=== PATIENT | female | born 1990 | race Caucasian/White ===

== ENCOUNTER 2019-02-09 09:27 | Day surgery (SDC) | payer BC ==
[2019-02-04 13:23] VITALS: BMI 37.2
[~2019-02-09 09:27] MED LIST: CLINDAMYCIN 600 MG in DEXTROSE 5% IN WATER 50 ML IVPB ONE; DEXAMETHASONE SOD PHOSPHATE 10 MG/ML 1 ML VIAL IV ONE; DEXAMETHASONE SOD PHOSPHATE 4 MG/ML 1 ML VIAL IV ONE; FAMOTIDINE 20 MG/2 ML VIAL IV ONE; LACTATED RINGERS 1,000 ML IV SCH; LIDOCAINE 1% 20 ML VIAL (10MG/ML) FOR IV START INTRADERMA PRN; ONDANSETRON 4 MG/2 ML VIAL IVP ONE; fentaNYL (PF) 50 MCG/ML 2 ML AMP IV PRN
[2019-02-09] MEDS ORDERED: MIDAZOLAM 2 MG/2 ML VIAL ONE (11:09)
[2019-02-09] MEDS ORDERED: PROPOFOL 10 MG/ML 20 ML VIAL IV ONE (11:09)
[2019-02-09] MEDS ORDERED: fentaNYL (PF) 50 MCG/ML 2 ML AMP ONE (11:09)
[2019-02-09] MEDS ORDERED: DEXAMETHASONE SOD PHOS (MDV) 100 MG/10 ML VIAL ONE (11:09)
[2019-02-09] MEDS ORDERED: LIDOCAINE 1% INJ 10MG/ML (20 ML MDV) ONE (11:09)
[2019-02-09] MEDS ORDERED: SUCCINYLCHOLINE CHLORIDE 100 MG/5 ML SYR IV ONE (11:09)
--- NOTE | 2019-02-09 11:58 | P.OP ---
Date of Procedure: 02/09/19 Preoperative Diagnosis: Chronic tonsillitis Chronic cryptic tonsillitis Postoperative Diagnosis: Same Procedure(s) Performed: Adenotonsillectomy Anesthesia: LAZAROA Surgeon: Lucius Marques Estimated Blood Loss (ml): 2 Pathology: other (Bilateral tonsils) Condition: stable Disposition: PACU Indications for Procedure: This 28-year-old white female whose had difficulties with chronic cryptic tonsillitis and chronic and recurrent tonsillitis Operative Findings: Tonsils +3 bilaterally with crypts and debris in the crypts with mild adenoid hypertrophy Description of Procedure: PROCEDURE: The patient was brought into the operative suite and placed in the supine position. The patient underwent induction of general anesthesia with oral endotracheal intubation without difficulty. The table was turned 90 degrees and the patient was positioned with a shoulder roll and head donut. The patient was prepped and draped in the usual aseptic fashion. The McIvor mouth gag was placed. The soft palate was palpated. No submucous cleft was noted. Red rubber Lo catheters were placed through both nasal cavities and pulled through the oropharynx for soft palate retraction. The nasopharynx was examined with a mirror examiner and the adenoids were vaporized/cauterized with suction cautery. This ablated the adenoids and there was good hemostasis noted. The red rubber Lo catheters were removed. The left tonsil was then grasped with a curved Allis clamp and dissected from the tonsillar fossa in a superior to inferior direction using both blunt and electrocautery dissection until the tonsils was removed. Once the tonsils were removed, hemostasis was gained with suction cautery. Attention was then turned to the right where the right tonsil was removed exactly as the left had been. Once hemostasis was obtained and remained good in both tonsillar fossa as well as the nasopharynx, the patient was suctioned in an orogastric fashion and the McIvor mouth gag was removed. The patient was then allowed to emerge from general anesthesia, having tolerated the procedure well. The patient was extubated in the operative suite and transferred to the postoperative recovery area in satisfactory condition.
[2019-02-09] MEDS: HYDROmorphone 0.5 MG/0.5 ML SYRINGE IVP PRN ×3 (12:10→12:27)
[2019-02-09 12:17] VITALS: TEMP 97.3
[2019-02-09] MEDS ORDERED: ONDANSETRON 4 MG/2 ML VIAL IVP ONE (12:24)
[2019-02-09] MEDS ORDERED: diphenhydrAMINE 50 MG/ML 1 ML VIAL IVP ONE (12:47)
[2019-02-09] MEDS ORDERED: HYDROcodone/APAP 7.5-325MG 1 EACH TAB PO ONE (13:54)
[2019-02-09 14:09] VITALS: BP 114/73; PULSE 75; RESP 17
== END 2019-02-09 14:12 | disposition home or self-care (01) ==
LOC: OR 09:27
PROVIDERS: ATTEND Otolaryngology
DX: J35.01 Chronic tonsillitis (principal); J03.91 Acute recurrent tonsillitis, unspecified; F32.9 Major depressive disorder, single episode, unspecified; G43.909 Migraine, unspecified, not intractable, without status migrainosus; E66.9 Obesity, unspecified; Z68.37 Body mass index [BMI] 37.0-37.9, adult; Z79.899 Other long term (current) drug therapy; Z79.1 Long term (current) use of non-steroidal anti-inflammatories (NSAID); Z88.0 Allergy status to penicillin; Z90.49 Acquired absence of other specified parts of digestive tract; Z80.49 Family history of malignant neoplasm of other genital organs; Z83.3 Family history of diabetes mellitus
CPT/HCPCS: 42821; 81025; 88304; J2250; J1200; J1100 ×2; J2405; J2001; J3010; J0330; J2704; J1170

== ENCOUNTER 2020-04-02 09:25 | Inpatient (IN) | payer BC, OTHER ==
[2020-03-29 16:04] VITALS: BMI 44.6
[2020-04-02] MEDS ORDERED: LACTATED RINGERS 1,000 ML IV ONE (10:03)
[2020-04-02] MEDS ORDERED: GENTAMICIN 360 MG in SODIUM CHLORIDE 0.9% 100 ML IVPB ONE (10:03)
[2020-04-02] MEDS ORDERED: CITRIC ACID-SODIUM CITRATE 15 ML CUP PO ONE (10:03)
[2020-04-02] MEDS ORDERED: CLINDAMYCIN 900 MG in DEXTROSE 5% IN WATER 50 ML IVPB ONE ×2 (10:03)
[2020-04-02 10:20] LABS: Basophils % (A) 0 %; Eosinophils # (A) 0.1 k/uL (0-0.7); Eosinophils % (A) 1 %; HCT 41.4 % (34.0-46.0); HGB 13.6 gm/dL (11.4-16.0); Lymphocytes # (A) 1.6 k/uL (1.0-4.8); Lymphocytes % (A) 12 %; MCH 28.7 pg (25.0-35.0); MCHC 32.9 g/dL (31.0-37.0); MCV 87.3 fL (80.0-100.0); Mean Platelet Volume 12.3; Monocytes # (A) 0.6 k/uL (0-1.0); Monocytes % (A) 5 %; Neutrophils # (A) 10.5 k/uL (1.3-7.7); Neutrophils % (A) 80 %; Platelet Count 108 k/uL (150-450); RBC 4.75 m/uL (3.80-5.40); RDW 14.3 % (11.5-15.5); WBC 13.1 k/uL (3.8-10.6)
[2020-04-02 10:42] LABS: Large Platelets Present
[2020-04-02] MEDS ORDERED: PHENYLEPHRINE-0.9% NACL SYG 1 MG/10 ML SYRINGE ONE (11:43)
[2020-04-02] MEDS ORDERED: KETOROLAC 15 MG/ML 1 ML VIAL ONE (11:43)
[2020-04-02] MEDS ORDERED: ONDANSETRON 4 MG/2 ML VIAL ONE (11:43)
[2020-04-02] MEDS ORDERED: METHYLERGONOVINE 0.2 MG/ML 1 ML AMP ONE (11:43)
[2020-04-02] MEDS ORDERED: ePHEDrine SULFATE/0.9% NACL/PF 50 MG/5 ML SYRINGE IV ONE (11:43)
[2020-04-02] MEDS ORDERED: NALBUPHINE 10 MG/ML (1 ML AMP) ONE (11:43)
[2020-04-02] MEDS ORDERED: OXYTOCIN 10 UNIT/ML 1 ML VIAL ONE (11:43)
[2020-04-02] MEDS ORDERED: MORPHINE SULFATE (PF) 0.3 MG/0.3 ML SYR ONE (11:43)
--- NOTE | 2020-04-02 11:51 | P.HPOB ---
History of Present Illness H&P Date: 04/02/20 Chief Complaint: Here for elective repeat section This is a 30-year-old female 2 para 1001 EDC 04/08/2020 at 39 and one sevenths weeks' gestation. Patient presents today for repeat section. She is declining option for . She is declining option for tubal ligation. Fetus is been active throughout the , she denies vaginal bleeding or fluid leakage or uterine contractions. Past medical history is significant for preeclampsia in the past. Past surgical history 2017 at a different institution, tonsillectomy 2018, appendectomy 2016. Current medications vitamins daily. ALLERGIES include penicillin family to which reports an unknown reaction. Family history significant for uterine cancer, ovarian cancer, diabetes. Obstetric history section 2017 for preeclampsia, liveborn female infant. Social history patient is , she is a former marijuana smoker, she is employed, she denies alcohol or drug use. history is significant for blood type A+, rubella status immune. VDRL testing, hepatitis B surface antigen, urine culture, gonorrhea and chlamydia cultures, Pap smear, group B strep cultures all negative. One-hour Glucola 102. On exam patient is 5 foot 1 inch, 236 pounds, blood pressure 130/66. Vital signs are stable and she is afebrile. General physical exam is within normal limits. Chest is clear in all hogan. Heart rate is consistent with reactive NST. Extremities reveal no edema. Impression: 39 and one sevenths weeks intrauterine , here for repeat low transverse section, declining , declining tubal ligation. Plan: For repeat low transverse section at this time. All risks benefits and alternatives discussed. All questions answered. Antibiotic prophylaxis given. Review of Systems Constitutional: Reports as per HPI Past Medical History Additional Past Medical History / Comment(s): MIGRAINES, HX POST DEPRESSION, RECURRENT TONSILLITIS, AND THRUSH AND TONSIL STONES. History of Any Multi-Drug Resistant Organisms: MRSA Date of last positivie culture/infection: 2017 MDRO Source:: right leg Past Surgical History: Appendectomy, Section, Tonsillectomy Past Anesthesia/Blood Transfusion Reactions: Postoperative Nausea & Vomiting (PONV) Past Psychological History: Depression Additional Psychological History / Comment(s): POST DEPRESSION Smoking Status: Never smoker Past Alcohol Use History: None Reported Past Drug Use History: Marijuana Additional Drug Use History / Comment(s): OCCASIONAL MARIJUANA in past-not during - Past Family History Mother Family Medical History: Cancer Additional Family Medical History / Comment(s): ENDOMETRIAL CANCER Medications and Allergies Home Medications Medication Instructions Recorded Confirmed Type Aspirin 81 mg PO DAILY 03/29/20 04/02/20 History Ferrous Sulfate [Feosol] 325 mg PO DAILY 03/29/20 04/02/20 History Pnv,Calcium 72/Iron/Folic Acid 1 each PO DAILY 03/29/20 04/02/20 History [ Plus Tablet] Allergies Allergy/AdvReac Type Severity Reaction Status Date / Time Penicillins Allergy Severe Anaphylaxis Verified 04/02/20 10:02 Exam Vital Signs Temp Pulse Resp BP Pulse Ox 04/02/20 10:31 97.6 F 100 16 142/81 98 Intake and Output 04/01/20 04/02/20 04/02/20 22:59 06:59 14:59 Other: Weight 107.048 kg See dictation under HPI please Results Result Diagrams: 04/02/20 10:10 Abnormal Lab Results - Last 24 Hours (Table) 04/02/20 Range/Units 10:10 WBC 13.1 H (3.8-10.6) k/uL Plt Count 108 L (150-450) k/uL Neutrophils # 10.5 H (1.3-7.7) k/uL Assessment and Plan Assessment: 39 and one sevenths week intrauterine , here for repeat low transverse section. Platelets noted to be 108,000, anesthesia aware. All questions answered. Plan: For repeat low transverse section at this time. Declining tubal ligation. All questions addressed and answered. Time with Patient: Less than 30
[2020-04-02] MEDS ORDERED: diphenhydrAMINE 50 MG/ML 1 ML VIAL IVP PRN ×3 (12:14→12:52)
[2020-04-02] MEDS ORDERED: MORPHINE SULFATE 2 MG/ML SYRINGE IVP PRN (12:14)
[2020-04-02] MEDS ORDERED: ONDANSETRON 4 MG/2 ML VIAL IVP PRN ×2 (12:14→12:52)
[2020-04-02] MEDS ORDERED: NALOXONE 0.4 MG/ML 1 ML VIAL IV PRN ×2 (12:14→12:52)
[2020-04-02] MEDS ORDERED: KETOROLAC 15 MG/ML 1 ML VIAL IVP PRN (12:52)
[2020-04-02] MEDS ORDERED: diphenhydrAMINE 25 MG CAP PO PRN (12:52)
[2020-04-02] MEDS ORDERED: ZOLPIDEM 5 MG TAB PO PRN (12:52)
[2020-04-02] MEDS ORDERED: METOCLOPRAMIDE 5 MG/ML 2 ML VIAL IVP PRN (12:52)
[2020-04-02] MEDS ORDERED: diphenhydrAMINE 50 MG CAP PO PRN (12:52)
[2020-04-02] MEDS ORDERED: SIMETHICONE 80 MG CHEWABLE PO PRN (12:52)
--- NOTE | 2020-04-02 12:52 | P.OP ---
Date of Procedure: 04/02/20 Preoperative Diagnosis: 39 and one sevenths week intrauterine , previous section declining . Declining option for tubal ligation. Postoperative Diagnosis: Same, liveborn male , macrosomia Procedure(s) Performed: Repeat low transverse section Anesthesia: spinal Surgeon: Pam Robles Home Sales Service Professional #1: [place] Estimated Blood Loss (ml): 650 IV fluids (ml): 1,100 Urine output (ml): 100 Pathology: none sent Condition: stable Disposition: PACU Description of Procedure: Patient is brought to the operating suite where a spinal analgesia with Duramorph is administered without difficulty. Antibiotics are given. She's placed in the dorsal supine position with left lateral uterine displacement. Dey catheter placed to direct drainage. The abdomen is prepped and draped in usual sterile fashion. Analgesia is checked and noted to be adequate. The appropriate timeout is performed to assure proper patient and procedural identification. A repeat low transverse incision is made. This is carried down through the subcutaneous tissue which is approximately 8 cm deep. The fascia is isolated, scored, extended bilaterally with curved Lowe scissors. Peritoneum is next identified and incised, there is no bowel or bladder involvement. The large disposable ring retractors placed into the abdomen for excellent visualization. Bladder flap is created with Metzenbaum scissors and at all times the bladder is Well from the operative field to avoid bladder and/or ureteral injury. A repeat low transverse incision is made. Fluid is noted to be clear. The incision is extended with blunt dissection. The infant's head is delivered in the occiput anterior position. The shoulders are carefully delivered, patient is officially delivered of a liveborn male at 1208 hrs. The oropharynx, nasopharynx and external nares are all bulb suction. Umbilical cord is doubly clamped and ligated. He is handed to waiting nurses for evaluation where scores of 8 and 9 at one and 5 minutes respectively are given. Infant weighs 4690 g or 10 lbs. 5 oz. The placenta is delivered manually, it is noted to be very large, intact, with trivascular cord. The uterus is then externalized and massaged. Oxytocin is given. The uterus is swept clean with a sterile sponge to avoid any retained products of conception. Uterus is closed in a two-step fashion, first layer running locking, second layer imbricated. Excellent reapproximation is noted. Bilateral tubes and ovaries appear normal to inspection. Abdomen is suctioned with suction on guard and the uterus is gently placed back into the abdominal cavity. Bilateral gutters are inspected and cleaned. Uterine incision is once again noted to be clean and dry. Peritoneum is allowed to close by secondary intention. Fascia is closed in a running stitch of 0 Vicryl with over ligation in the midline. Subcutaneous tissue is irrigated, noted to be clean and dry. It is reapproximated with 3-0 Vicryl. 4-0 undyed Monocryl is used for final skin closure. Steri-Strips and Mastisol are applied to the wound. Dey is noted to be draining clear urine all sponge needle and enhancement counts are correct. Total fluid replacement 1100 mL, estimated blood loss 650 mL, 100 mL urine collection. Patient and her are allowed to begin the bonding experience in the LDR. They are requesting circumcision further infant son.
[2020-04-02] MEDS: SENNOSIDES-DOCUSATE SODIUM 1 EACH TAB PO SCH (20:15)
[2020-04-02] MEDS: LACTATED RINGERS 1,000 ML IV SCH ×4 (20:17→22:14)
[2020-04-02] MEDS: IBUPROFEN 600 MG TAB PO PRN (23:45)
[2020-04-03] MEDS: LACTATED RINGERS 1,000 ML IV SCH ×3 (03:26→22:29)
[2020-04-03] MEDS: IBUPROFEN 600 MG TAB PO PRN ×3 (07:05→18:33)
--- NOTE | 2020-04-03 08:22 | P.PN ---
Subjective Progress Note Date: 04/03/20 Principal diagnosis: Postoperative day #1 Slept well. Positive flatus. Ambulating and passing urine without difficulty. Pain well controlled. Objective - Vital Signs Vital signs: Vital Signs Temp 98.2 F 04/03/20 03:57 Pulse 82 04/03/20 03:57 Resp 16 04/03/20 07:00 BP 107/57 04/03/20 03:57 Pulse Ox 97 04/03/20 05:00 Intake & Output 04/02/20 04/03/20 04/03/20 18:59 06:59 18:59 Output Total 750 1350 Balance -750 -1350 Weight 107.048 kg Output: Urine 250 1350 Uretheral (Dey) 450 Estimated Blood Loss 500 Other: Voiding Method Toilet # Voids 1 - Constitutional General appearance: Present: morbidly obese - EENT Eyes: Present: PERRLA ENT: Present: hearing grossly normal - Neck Neck: Present: normal ROM - Respiratory Respiratory: bilateral: CTA - Cardiovascular Rhythm: regular - Gastrointestinal General gastrointestinal: Present: normal bowel sounds - Genitourinary Genitourinary Comment(s): Uterus firm, midline, symmetric, 18 week size. Incision clean and dry, well approximated. - Integumentary Integumentary: Present: normal - Neurologic Neurologic: Present: CNII-XII intact - Musculoskeletal Musculoskeletal: Present: gait normal, strength equal bilaterally - Psychiatric Psychiatric: Present: A&O x's 3, appropriate affect, intact judgment & insight - Labs CBC & Chem 7: 04/02/20 10:10 Labs: Abnormal Lab Results - Last 24 Hours (Table) 04/02/20 Range/Units 10:10 WBC 13.1 H (3.8-10.6) k/uL Plt Count 108 L (150-450) k/uL Neutrophils # 10.5 H (1.3-7.7) k/uL Assessment and Plan Assessment: Doing well day #1 Plan: Continue postoperative care. Advanced diet and activity. Likely discharge home tomorrow. Time with Patient: Less than 30
[2020-04-03 08:51] LABS: Basophils % (A) 0 %; Eosinophils # (A) 0.1 k/uL (0-0.7); Eosinophils % (A) 1 %; HCT 34.4 % (34.0-46.0); HGB 11.3 gm/dL (11.4-16.0); Lymphocytes # (A) 1.1 k/uL (1.0-4.8); Lymphocytes % (A) 9 %; MCH 29.3 pg (25.0-35.0); MCHC 32.8 g/dL (31.0-37.0); MCV 89.2 fL (80.0-100.0); Mean Platelet Volume 12.4; Monocytes # (A) 0.3 k/uL (0-1.0); Monocytes % (A) 3 %; Neutrophils # (A) 10.1 k/uL (1.3-7.7); Neutrophils % (A) 86 %; RBC 3.85 m/uL (3.80-5.40); RDW 14.5 % (11.5-15.5); WBC 11.7 k/uL (3.8-10.6)
[2020-04-03 08:57] LABS: Platelet Count 92 k/uL (150-450)
[2020-04-03 10:34] LABS: Large Platelets Present
[2020-04-03] MEDS: SENNOSIDES-DOCUSATE SODIUM 1 EACH TAB PO SCH ×2 (11:05→21:26)
[2020-04-03] MEDS: ACETAMINOPHEN TAB 325 MG TAB PO PRN (21:26)
[2020-04-04] MEDS: IBUPROFEN 600 MG TAB PO PRN ×3 (00:30→20:30)
[2020-04-04] MEDS: ACETAMINOPHEN TAB 325 MG TAB PO PRN ×4 (03:31→23:37)
--- NOTE | 2020-04-04 08:26 | P.DS ---
Providers Date of admission: 04/02/20 09:52 Expected date of discharge: 04/04/20 Attending physician: Pam Robles Primary care physician: Stated None Hospital Course: This is a 30-year-old female 2 para 1001 EDC 04/08/2020 at 39 and one sevenths weeks' gestation. Patient presented for repeat low transverse section. is remarkable for rubella status immune, blood type B positive, negative group B strep cultures. Please see dictated history and physical for details. Patient underwent a repeat low transverse section and gave to a liveborn male infant with scores of 8 and 9 at one and 5 minutes respectively. He weighed 4690 g or 10 lbs. 5 oz. Estimated blood loss 650 mL's. Please see dictated delivery note for details. This morning patient is doing well. She is voiding, ambulating and passing flatus without difficulty. Vital signs are stable and she is afebrile. Fundus is firm and in the midline, symmetric and 18 week size. Incision is clean and dry, intact, Steri-Strips applied. Extremities reveal no edema. Chest is clear in all hogan. Pain is well tolerated. Patient will be discharged home later today. She will follow-up with me in the office in 2 weeks. I have reminded her no intercourse, tampons or douching. She will use [id number] Advil or Aleve, or Motrin as needed for pain. She will call with any fevers shakes or chills, foul smelling or copious lochia, with the passage of large blood clots, with any pain not alleviated by [id number] products, or indeed with any concerns. infant will follow-up with surgical resident as per recommendations. Assessment: Doing well postoperative day number two Patient Condition at Discharge: Good Plan - Discharge Summary Discharge Rx Participant: No New Discharge Prescriptions: No Action Ferrous Sulfate [Feosol] 325 mg PO DAILY Aspirin 81 mg PO DAILY Pnv,Calcium 72/Iron/Folic Acid [ Plus Tablet] 1 each PO DAILY Discharge Medication List Aspirin 81 mg PO DAILY 03/29/20 [History] Ferrous Sulfate [Feosol] 325 mg PO DAILY 03/29/20 [History] Pnv,Calcium 72/Iron/Folic Acid [ Plus Tablet] 1 each PO DAILY 03/29/20 [History] Follow up Appointment(s)/Referral(s): Pam Robles MD [STAFF PHYSICIAN] - 2 Weeks Discharge Disposition: HOME SELF-CARE
[2020-04-04] MEDS: SENNOSIDES-DOCUSATE SODIUM 1 EACH TAB PO SCH ×2 (09:49→20:32)
[2020-04-05] MEDS: IBUPROFEN 600 MG TAB PO PRN ×3 (03:28→15:40)
[2020-04-05] MEDS: ACETAMINOPHEN TAB 325 MG TAB PO PRN ×2 (05:32→12:17)
[2020-04-05 09:00] VITALS: BP 126/78; PULSE 81; RESP 16; TEMP 98.2
[2020-04-05] MEDS: SENNOSIDES-DOCUSATE SODIUM 1 EACH TAB PO SCH (09:00)
== END 2020-04-05 15:55 | disposition home or self-care (01) | DRG 788 ==
LOC: 4FBP 09:52
PROVIDERS: ADMIT Obstetrics & Gynecology; ATTEND Obstetrics & Gynecology
PROC: 10D00Z1 Extraction of Products of Conception, Low, Open Approach (ICD-10-PCS; principal; 2020-04-02 12:00)
DX: O34.211 Maternal care for low transverse scar from previous cesarean delivery (principal); F12.11 Cannabis abuse, in remission; O36.60X0 Maternal care for excessive fetal growth, unspecified trimester, not applicable or unspecified; N85.8 Other specified noninflammatory disorders of uterus; Z37.0 Single live birth; Z79.82 Long term (current) use of aspirin; Z79.899 Other long term (current) drug therapy; Z87.59 Personal history of other complications of pregnancy, childbirth and the puerperium; Z90.49 Acquired absence of other specified parts of digestive tract; Z90.89 Acquired absence of other organs; Z87.19 Personal history of other diseases of the digestive system; Z98.890 Other specified postprocedural states; Z86.14 Personal history of Methicillin resistant Staphylococcus aureus infection; Z86.69 Personal history of other diseases of the nervous system and sense organs; Z86.59 Personal history of other mental and behavioral disorders; Z86.19 Personal history of other infectious and parasitic diseases; Z88.0 Allergy status to penicillin; Z80.49 Family history of malignant neoplasm of other genital organs; Z83.3 Family history of diabetes mellitus; Z80.41 Family history of malignant neoplasm of ovary
CPT/HCPCS: 85025; 86850; 86900; 86901